=== PATIENT | male | born 1985 | race Caucasian/White ===

== ENCOUNTER 2021-09-14 18:02 | Emergency (ER) | payer SELFPAY ==
[2021-09-14] MEDS ORDERED: Ventolin HFA Inhaler 60 PUFF INHALER ONE (19:03)
[2021-09-15 11:51] LABS: SARS-CoV-2 PCR by NAA Not Detected (NotDetected)
== END 2021-09-14 19:43 | disposition home or self-care (01) ==
LOC: CSHERS 18:02
DX: J20.9 Acute bronchitis, unspecified (principal); F17.210 Nicotine dependence, cigarettes, uncomplicated; Z20.822 Contact with and (suspected) exposure to COVID-19
CPT/HCPCS: 71045; 87804; U0003; U0005

== ENCOUNTER 2023-02-04 15:50 | Emergency (ER) | payer SELFPAY ==
[2023-02-04] MEDS ORDERED: Ketorolac Tromethamine 30 MG/ML VIAL ONE (16:13)
== END 2023-02-04 16:47 | disposition home or self-care (01) ==
LOC: CSHERS 15:50
DX: S20.20XA Contusion of thorax, unspecified, initial encounter (principal); F17.210 Nicotine dependence, cigarettes, uncomplicated; X58.XXXA Exposure to other specified factors, initial encounter
CPT/HCPCS: 96372; J1885